=== PATIENT | female | born 1990 | race Caucasian/White ===

== ENCOUNTER 2021-08-19 20:07 | Emergency (ER) | payer OTHER, SELFPAY | END 2021-08-19 22:00 | disposition left against medical advice (07) | LOC: CSHERS 20:07 | DX: Z53.21 Procedure and treatment not carried out due to patient leaving prior to being seen by health care provider (principal) ==

== ENCOUNTER 2022-05-28 08:17 | Emergency (ER) | payer SELFPAY | END 2022-05-28 09:50 | disposition home or self-care (01) | LOC: CSHERS 08:17 | DX: J02.0 Streptococcal pharyngitis (principal) | CPT/HCPCS: 87081; 87430; 99283 ==

== ENCOUNTER 2022-09-16 08:46 | Emergency (ER) | payer SELFPAY | END 2022-09-16 10:12 | disposition home or self-care (01) | LOC: CSHERS 08:46 | DX: H92.01 Otalgia, right ear (principal) | CPT/HCPCS: 99283 ==

== ENCOUNTER 2024-06-03 10:07 | Emergency (ER) | payer OTHER ==
[2024-06-03] MEDS ORDERED: Morphine 4 MG/ML VIAL ONE (10:32)
[2024-06-03] MEDS ORDERED: Ondansetron PF 4 MG/2 ML Vial ONE (10:32)
[2024-06-03 11:11] LABS: #Basophils 0.04 10x3/uL (0.0-0.2); #Monocytes 0.31 10x3/uL (0.0-1.1); #Neutrophils 3.44 10x3/uL (1.5-8.4); %Basophils 0.6 % (0.0-2.0); %Eosinophils 1.6 % (0.0-6.0); %Lymphocytes 38.7 % (18.0-47.0); %Monocytes 4.9 % (0.0-10.0); %Neutrophils 53.9 % (40.0-75.0); Hematocrit 40.2 % (34.9-44.5); Hemoglobin 13.1 g/dL (12.0-15.5); Mean Corpuscular HGB CONC 32.6 g/dL (32.0-36.0); Mean Corpuscular Hemoglobin 29.8 pg (27.0-33.0); Mean Corpuscular Volume 91.4 fL (81.6-98.3); Mean Platelet Volume 9.1 fL (7.4-10.4); Platelet Count 220 10x3/uL (150-450); RBC Distribution Width 12.9 % (11.5-14.5); White Blood Cell (WBC) Count 6.4 10x3/uL (3.5-10.5)
[2024-06-03 11:19] LABS: BHCG - Serum Negative (NEGATIVE); Pregs Control Background? CLEAR/WHITE (CLR/WHITE); Pregs Control Bar Appear? YES (CONTROL BAR)
[2024-06-03 11:27] LABS: ALT (SGPT) 27 U/L (8-55); AST (SGOT) 19 U/L (5-34); Albumin 3.9 g/dL (3.5-5.0); Alkaline Phosphatase 82 U/L (40-110); Anion Gap 13 mmol/L (10-20); BUN (Urea Nitrogen) 13 mg/dL (7.0-18.7); Bilirubin, Total 0.5 mg/dL (0.2-1.2); Calc. Creatinine Clearance 0 mL/min (70-130); Calcium 9.3 mg/dL (7.8-10.44); Carbon Dioxide 23 mmol/L (22-29); Chloride 108 mmol/L (98-107); Estimated GFR 94; Globulin 3.7 g/dL (2.4-3.5); Glucose 104 mg/dL (70-105); Lipase 18 U/L (8-78); Potassium 4.2 mmol/L (3.5-5.1); Protein, Total 7.6 g/dL (6.0-8.3); Sodium 140 mmol/L (136-145)
== END 2024-06-03 14:02 | disposition home or self-care (01) ==
LOC: CSHERS 10:07
DX: K80.70 Calculus of gallbladder and bile duct without cholecystitis without obstruction (principal)
CPT/HCPCS: 76705; 80053; 83690; 84703; 85025; 96374; 96375; J2272; J2405